=== PATIENT | male | born 2000 | race Caucasian/White ===

== ENCOUNTER 2022-12-26 11:52 | Emergency (ER) | payer BC, SELFPAY ==
[2022-12-26 11:57] VITALS: BP 115/74; PULSE 94; RESP 16; TEMP 36.7; O2SAT 99; BMI 21.0
--- NOTE | 2022-12-26 13:38 | ED.GENADULT ---
HPI - General Adult General Chief complaint: Extremity Pain/Injury, Lower Stated complaint: RT foot, pulled toe nails off now black Time Seen by Provider: 12/26/22 13:36 Source: patient Mode of arrival: ambulatory Limitations: no limitations History of Present Illness HPI narrative: 22-year-old male coming in today complaining of an ingrown toenail. He has been having increasing pain over the last couple of days and noticed the toe has been getting swollen and erythematous. Related Data Home Medications Medication Instructions Recorded Confirmed dextroamphetamine-amphetamine ER 1 cap PO DAILY 12/26/22 12/26/22 30 mg 24hr capsule,extend release (Adderall XR) Previous Rx's Medication Instructions Recorded cephalexin 500 mg capsule 500 mg PO QID 7 days #28 caps 12/26/22 Allergies Allergy/AdvReac Type Severity Reaction Status Date / Time No Known Drug Allergies Allergy Verified 12/26/22 12:03 Review of Systems Status of ROS: Reports: 6 or more systems reviewed and unremarkable except as noted in History and below Exam Narrative: Exam Narrative: Well-nourished well-developed patient in no acute distress. Alert and oriented. Answers questions appropriately. Mood and affect are appropriate. Thoughts are goal oriented and rational. No tangential or magical thinking noted. Patient speaks in full sentences without needing to catch his breath. HEENT: Normocephalic atraumatic. Pupils are equally round reactive to light. Extraocular muscles are intact. Conjunctivae are moist without any icterus noted. Extremities: Patient is in grown 1st toe toenail on the right foot. There is pus draining from the area, the tip of the toe is erythematous and tender. Const: Vital Signs, click to edit/add: Vital Signs - 24 hr 12/26/22 11:57 Temperature 98.0 F Pulse Rate [Right Pulse Oximeter] 94 Respiratory Rate 16 Blood Pressure [Ri ght Upper Arm] 115/74 Pulse Oximetry 99 Oxygen Delivery Me thod Room Air Course Vital Signs Vital signs: Initial Vital Signs Temperature 98.0 F 12/26/22 11:57 Temperature Source Temporal Artery Scan 12/26/22 11:57 Pulse Rate 94 12/26/22 11:57 Respiratory Rate 16 12/26/22 11:57 Blood Pressure 115/74 12/26/22 11:57 Blood Pressure Mean 87 12/26/22 11:57 Blood Pressure Position Sitting 12/26/22 11:57 Pulse Oximetry 99 12/26/22 11:57 Oxygen Delivery Method Room Air 12/26/22 11:57 Vital Signs Temperature 98.0 F 12/26/22 11:57 Pulse Rate 94 12/26/22 11:57 Respiratory Rate 16 12/26/22 11:57 Blood Pressure 115/74 12/26/22 11:57 Pulse Oximetry 99 12/26/22 11:57 Oxygen Delivery Method Room Air 12/26/22 11:57 Temperature 98.0 F 12/26/22 11:57 Pulse Rate 94 12/26/22 11:57 Respiratory Rate 16 12/26/22 11:57 Blood Pressure 115/74 12/26/22 11:57 Pulse Oximetry 99 12/26/22 11:57 Oxygen Delivery Method Room Air 12/26/22 11:57 Medical Decision Making MDM Narrative Medical decision making narrative: [age] year male with ingrown toenail with infection. Patient will be placed on Keflex q.i.d. for the next week and he is instructed to call his primary care provider in the next 7-10 days to schedule a toenail resection. Discharge Plan Discharge Clinical Impression: Ingrowing toenail, Infection Patient Disposition: Home, Self-Care Condition: Stable Additional Instructions: Take all antibiotics as prescribed. Call your primary care provider today to make an appointment in 7-10 days for partial toenail removal. Prescriptions: New cephalexin 500 mg capsule 500 mg PO QID 7 Days Qty: 28 0RF No Action dextroamphetamine-amphetamine [Adderall XR] 30 mg capsule,extended release 24hr 1 cap PO DAILY Stand Alone Forms: [facility] Info Instructions
== END 2022-12-26 13:47 | disposition home or self-care (01) ==
LOC: ED 13:49
PROVIDERS: Emergency Provider Family Medicine
DX: L60.0 Ingrowing nail (principal)
CPT/HCPCS: 99283

== ENCOUNTER 2023-07-16 17:09 | Emergency (ER) | payer BC, SELFPAY ==
[2023-07-16 17:26] VITALS: BP 115/67; PULSE 97; RESP 18; TEMP 36.7; O2SAT 97; BMI 21.0
--- NOTE | 2023-07-16 17:32 | ED.GENADULT ---
HPI - General Adult General Time Seen by Provider: 17:32 Date Seen: 07/16/23 Chief complaint: Extremity Pain/Injury, Lower Stated complaint: L foot infected ingrown toenail, gushing blood Time Seen by Provider: 07/16/23 17:31 Source: patient and RN notes reviewed Mode of arrival: ambulatory Limitations: no limitations History of Present Illness HPI narrative: This 23-year-old male accompanied by his female significant other with concern of infected left ingrown toenail. He has had a history of this being infected before, was in the ER on 12/26/2022. If received Keflex come he states it got better. He never did follow up to have a partial toenail removal. He was sitting at dinner tonight, felt his foot get wet. He has had pain in that ingrown toenail area again. He has had no fevers or chills. No history of antibiotic allergies. Related Data Home Medications Medication Instructions Recorded Confirmed dextroamphetamine-amphetamine ER 1 cap PO DAILY 12/26/22 12/26/22 30 mg 24hr capsule,extend release (Adderall XR) Previous Rx's Medication Instructions Recorded cephalexin 500 mg capsule 500 mg PO QID 7 days #28 caps 12/26/22 cephalexin 500 mg tablet 500 mg PO QID #28 tabs 07/16/23 Allergies Allergy/AdvReac Type Severity Reaction Status Date / Time No Known Drug Allergies Allergy Verified 12/26/22 12:03 Review of Systems Narrative: As per HPI. Exam Const: Vital Signs, click to edit/add: Vital Signs - 24 hr 07/16/23 17:26 Temperature 98.1 F Pulse Rate [Pulse Oximeter] 97 Respiratory Rate 18 Blood Pressure [Ri ght Upper Arm] 115/67 Pulse Oximetry 97 Oxygen Delivery Me thod Room Air Patient has his left foot wrapped in a towel with duct tape. This was removed. He has some dried blood around the end of his left 1st toenail. He has swelling along the lateral nail fold of the 1st toe, he is quite tender, the area is swollen. There is some blood over the area, difficult to see if there is any pus draining. The overall toe itself is not significantly swollen. He has pain along that lateral nail fold, at the end of the nail fold there is some granulation tissue. Exam seems to be consistent with ingrown toenail. Documenting provider has reviewed patient's vital signs: yes Course Course ED Course: Discussed with patient that it is imperative that he follow up for partial removal of this toenail. Antibiotics will help with the infection but it is never going to repair the ingrown toenail. We do not take toenails offer partial toenails off with active in infection. He will need to be on antibiotics, we discussed conservative care with soaks and bandaging. He will need to follow up in clinic in the next 1-2 weeks for partial toenail removal for ingrown toenail. We discussed that the bleeding comes from the friable infected tissue. He is not actively bleeding now. Vital Signs Vital signs: Initial Vital Signs Temperature 98.1 F 07/16/23 17:26 Temperature Source Temporal Artery Scan 07/16/23 17:26 Pulse Rate 97 07/16/23 17:26 Respiratory Rate 18 07/16/23 17:26 Blood Pressure 115/67 07/16/23 17:26 Blood Pressure Mean 83 07/16/23 17:26 Pulse Oximetry 97 07/16/23 17:26 Oxygen Delivery Method Room Air 07/16/23 17:26 Vital Signs Temperature 98.1 F 07/16/23 17:26 Pulse Rate 97 07/16/23 17:26 Respiratory Rate 18 07/16/23 17:26 Blood Pressure 115/67 07/16/23 17:26 Pulse Oximetry 97 07/16/23 17:26 Oxygen Delivery Method Room Air 07/16/23 17:26 Temperature 98.1 F 07/16/23 17:26 Pulse Rate 97 07/16/23 17:26 Respiratory Rate 18 07/16/23 17:26 Blood Pressure 115/67 07/16/23 17:26 Pulse Oximetry 97 07/16/23 17:26 Oxygen Delivery Method Room Air 07/16/23 17:26 Critical Care Time Critical Care Time Critical Care Time: No Discharge Plan Discharge Clinical Impression: Ingrown toenail of left foot with infection Patient Disposition: Home, Self-Care Condition: Stable Instructions: Ingrown Nail (ED), Warm Compress or Soak (ED) Additional Instructions: Start antibiotics and take as prescribed. Use bandages as needed for drainage. Do recommend warm soaks of this foot 20 minutes per time, 2-3 times per day for the next 3-5 days. It is imperative that you get a clinic appointment scheduled in the next 1-2 weeks to have a partial toenail removal on this toe. Activity Level: Activity as Tolerated Prescriptions: New cephalexin 500 mg tablet 500 mg PO QID Qty: 28 0RF No Action dextroamphetamine-amphetamine [Adderall XR] 30 mg capsule,extended release 24hr 1 cap PO DAILY cephalexin 500 mg capsule 500 mg PO QID 7 Days Qty: 28 0RF Follow Up/Referrals: Provider,Not a Local [Primary Care Provider] - Stand Alone Forms: [facility] Info Instructions
== END 2023-07-16 18:06 | disposition home or self-care (01) ==
LOC: ED 17:50
PROVIDERS: Emergency Provider Family Medicine
DX: L60.0 Ingrowing nail (principal); L03.032 Cellulitis of left toe
CPT/HCPCS: 99282; 99283